=== PATIENT | female | born 1985 | race Caucasian/White ===

== ENCOUNTER 2019-07-30 17:21 | Inpatient (IN) | payer MEDICAID, SELFPAY ==
[2019-07-30 17:35] VITALS: PULSE 100; RESP 20; TEMP 36.8; O2SAT 99; BMI 48.4
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
[2019-07-30 18:02] VITALS: PULSE 98; RESP 16; O2SAT 98
--- NOTE | 2019-07-30 18:06 | PC.NURSE ---
Patient denies any suicidal or homicidal ideation, sitter not required, patient still placed in stripped safety room.
[2019-07-30 18:31] LABS: Basophils % 0.3 %; Eosinophils # 0.3 10^3/uL (0.0-0.8); Eosinophils % 2.6 %; Hematocrit 41.5 % (37.0-47.0); Hemoglobin 13.6 g/dL (11.5-15.3); Lymphocytes # 2.9 10^3/uL (0.8-4.8); Lymphocytes % 28.4 %; Mean Corpuscular HGB Conc 32.8 g/dL (30.0-36.0); Mean Corpuscular Hemoglobin 31.3 pg (28.0-34.0); Mean Corpuscular Volume 95.4 fL (81-99); Mean Platelet Volume 10.5 fL (7.4-10.4); Monocytes # 0.7 10^3/uL (0.2-0.9); Monocytes % 6.6 %; Neutrophils # 6.2 10^3/uL (1.8-7.7); Neutrophils % 61.8 %; Nucleated Red Blood Cells % 0 %; Platelet Count 226 10^3/cmm (130-400); Red Blood Count 4.35 10^6/uL (4.1-5.3); Red Cell Distribution Width 12.3 % (12.1-15.1)
[2019-07-30 18:41] LABS: Alanine Aminotransferase 50 U/L (0-33); Albumin Level 4.3 g/dL (3.5-5.2); Alkaline Phosphatase 98 IU/L (35-105); Anion Gap 17.1 (5-19); Aspartate Amino Transferase 25 U/L (0-32); Blood Urea Nitrogen 9 mg/dL (6-20); Calcium 9.7 mg/dL (8.5-10.5); Carbon Dioxide 24 mmol/L (22-29); Chloride 103 mmol/L (98-107); Globulin 3.4 g/dL (1.3-4.6); Glomerular Filtration Rate 71.3 mL/min (90-130); Glucose 134 mg/dL (74-109); Potassium 4.1 mmol/L (3.5-5.1); Sodium 140 mmol/L (136-145); Total Bilirubin 0.5 mg/dL (0.15-1.2); Total Protein 7.7 g/dL (6.6-8.7)
[2019-07-30 18:46] LABS: Acetaminophen < 5.0 ug/mL (10-30); Alcohol Level < 10 mg/dL (0-10); Salicylate < 0.3 mg/dL (3-10)
[2019-07-30 19:03] LABS: HCG Qualitative Urine. Negative (Negative)
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
[2019-07-30 19:29] LABS: Amphetamines Screen Urine Positive (Negative); Barbiturates Screen Urine Negative (Negative); Benzodiazepines Screen Urine Negative (Negative); Cocaine Screen Urine Negative (Negative); Opiate Screen Urine Negative (Negative); PCP Screen Urine Negative (Negative); THC Screen Urine Positive (Negative)
[2019-07-30 20:32] VITALS: BP 131/85; PULSE 93; RESP 17; TEMP 36.8; O2SAT 96
[2019-07-30 21:28] VITALS: BP 131/85; PULSE 93; RESP 17; TEMP 36.8; O2SAT 96
[2019-07-30 22:00] VITALS: RESP 18
[2019-07-30] MEDS: nicotine 2 mg Gum BUCCAL (22:43)
[2019-07-31 06:00] VITALS: BP 119/86; PULSE 84; RESP 17; TEMP 36.7; O2SAT 96
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
[2019-07-31] MEDS: citalopram 20 mg Tablet PO (09:01)
[2019-07-31] MEDS: nicotine 21 mg Patch 1 PATCH TRANSDERMA (12:28)
[2019-07-31 14:00] VITALS: BP 117/86; PULSE 88; RESP 18; TEMP 36.7; O2SAT 96
--- NOTE | 2019-07-31 17:25 | PC.NURSE ---
Patient requested this RN to note that she would like to speak to a social media sr strategy manager tomorrow.
[2019-07-31] MEDS: acetaminophen 325 mg Tablet 650 MG PO (18:34)
[2019-07-31] MEDS: mirtazapine 30 mg Tablet PO (21:03)
[2019-07-31 22:00] VITALS: BP 135/93; PULSE 84; RESP 23; TEMP 36.7; O2SAT 96
[2019-08-01 06:00] VITALS: BP 122/78; PULSE 75; RESP 17; TEMP 36.6; O2SAT 95
--- NOTE | 2019-08-01 07:38 | PM.NDC ---
Diagnoses at Discharge Discharge Diagnosis (1) Adjustment disorder with disturbance of emotion: Status: Acute Problem details: Patient had dysfunctional family problems. She could use cognitive behavioral therapy. She also said she did well on the listed discharge medicines (citalopram 20 mg p.o. daily and mirtazapine 30 mg p.o. bedtime), off of which she had been for a period of time. These are now reinstated. Reason for Visit Reason for Visit: Reason For Visit: mhe Brief History: The patient became distraught over family conflict. She felt overwhelmed and she had been off of her medications described above. She came in for stabilization and reinstatement of pharmacotherapy. Hospital Course Hospital Course Patient was quite distraught upon entry. We involved her in [facility] and she was away from the [facility] . This alone had a therapeutic effect. Her medications were reinstated and she said she the following day that she already was feeling better from them. Patient's discharge status is that of a normal mental status. She denies any suicidal or homicidal ideation plan or intent. Discharge Summary The patient was distraught at the beginning she has now a normal mental status and is free of suicidal or homicidal ideation. She has follow-up resources and is now back on her medications. Involuntary Hold Information 96 Hour Hold: 96 Hour Involuntary Admission: No Mental Status Exam MSE Comments: The patient is alert and oriented to person, place, time, and situation. Hygiene is disheveled. Sensorium is spotty but she actually understands what we tell her and what's going on around her. The patient maintains appropriate eye contact, is cooperative and relates well to me. Behavior shows no psychomotor agitation. Mood is calm and euthymic. Affect is appropriate to her current mood. Thought processes are slightly scattered but they are free of racing, blocking or looseness of association. Speech is of normal rate and volume, without dysarthria, aprosody or pressure. There is no inordinate latency of response. The patient denies auditory or visual hallucinations or delusions. The patient denies suicidal or homicidal ideation, plan or intent. She exhibits no assaultive behavior this morning. Memory is intact for recent and remote events. Fund of knowledge is adequate given vocabulary. Insight and judgment were deemed to be good given the recognition of problems and desire for treatment. Physical Exam Narrative: EXAM NARRATIVE: The patient appeared thin but adequately nourished and normally developed. Vital signs as documented. Head exam is unremarkable. No scleral icterus or corneal arcus noted. Neck is without jugular venous distension, thyromegaly, or carotid bruits. Lungs are clear to auscultation and percussion. Heart normal sinus rhythm, no murmurs. Abdomen bland. Extremities no limitation of motion, no lower extremity edema. Neurological cranial nerves II to XII intact. No cerebellar, sensory or motor deficit noted. Mental status as above. Discharge Data Vitals: Last Vital Signs Temp 97.9 F 08/01/19 06:00 Pulse 75 08/01/19 06:00 Resp 17 08/01/19 06:00 BP 122/78 08/01/19 06:00 Pulse Ox 95 08/01/19 06:00 Discharge Plan Discharge Patient Disposition: Home, Self-Care Condition: Stable Prescriptions: New citalopram 20 mg Tablet 20 mg PO DAILY Qty: 30 RF: 1 mirtazapine 30 mg Tablet 30 mg PO BEDTIME Qty: 30 RF: 1 Discharge Orders: Discharge Order (Routine); Ordered 07/31/19 Ordered By: Ludwin Mascorro Discharge Diet: Usual diet Discharge Activity: Resume usual activity Discharge Attestations NPU Time Spent in Discharge Care*: greater than 30 min Status at Discharge: Cognitive status at discharge: cognitively intact, Behavioral status at discharge: cooperative, Functional status at discharge: independent ambulation Overall status at discharge: patient is back to baseline Coding Level of Care Code Acute Taste Tester for g Fwd Diagnoses Adjustment disorder with disturbance of emotion F43.29
[2019-08-01 09:14] VITALS: BP 122/78; PULSE 75; RESP 17; TEMP 36.6; O2SAT 95
[2019-08-01 09:21] VITALS: BP 122/78; PULSE 75; RESP 17; TEMP 36.6; O2SAT 95
[2019-08-01] MEDS: citalopram 20 mg Tablet PO (09:32)
== END 2019-08-01 09:36 | disposition home or self-care (01) | DRG 605 ==
LOC: ER 19:36 → NP 19:48
PROVIDERS: Emergency Provider Emergency Medicine
DX: S51.812A Laceration without foreign body of left forearm, initial encounter (principal); X78.9XXA Intentional self-harm by unspecified sharp object, initial encounter; F43.25 Adjustment disorder with mixed disturbance of emotions and conduct; F17.210 Nicotine dependence, cigarettes, uncomplicated
CPT/HCPCS: 12345; 36415; 80053; 80307; 81025; 85025; 99284